=== PATIENT | female | born 1960 | race Caucasian/White ===

== ENCOUNTER 2017-05-28 07:33 | Day surgery (SDC) | payer OTHER ==
[~2017-05-28] VITALS: Ht 157.5 cm; Wt 99.8 kg
[~2017-05-28 07:33] MED LIST: BLUE TP; EMERGEN-C IMM1000 MG PO; GLUCOPHAGE XR,500 MG PO; LEVOXYL88 MCG PO; LIPITOR20 MG PO; MOTRIN400 MG PO
[2017-05-28 08:33] VITALS: BP 178/84
[2017-05-28 12:25] VITALS: BP 144/77
[2017-05-28 13:35] VITALS: BP 132/65
[2017-05-28 23:37] VITALS: BP 136/71
[2017-05-29 04:46] VITALS: BP 111/56
[2017-05-29 07:45] VITALS: BP 118/56
[2017-05-29] MEDS ORDERED: ASPIR-LOW81 MG PO (08:26)
[2017-05-29] MEDS ORDERED: ROXICODONE5 MG PO (11:35)
== END 2017-05-29 11:55 | disposition home or self-care (01) ==
LOC: SDC 07:33 → 2SOUTH 11:05 → 3EAST 11:05 → 2SOUTH 11:05 → ENRESERV 11:14 → SDC 12:19 → ENRESERV 13:46 → 3EAST 15:25
PROVIDERS: Orthopaedic Surgery
PROC: 0RRK0J7 Replacement of Left Shoulder Joint with Synthetic Substitute, Glenoid Surface, Open Approach (ICD-10-PCS; principal; 2017-05-28)
DX: M19.012 Primary osteoarthritis, left shoulder (principal); E11.9 Type 2 diabetes mellitus without complications; E03.9 Hypothyroidism, unspecified; K21.9 Gastro-esophageal reflux disease without esophagitis; Z79.84 Long term (current) use of oral hypoglycemic drugs; E78.5 Hyperlipidemia, unspecified
CPT/HCPCS: 82948; G0378; J0131; J0690; J1100; J1170; J1885; J2250; J2405; J2710; J2795; J3010; J7030; J7050; Q0175

== ENCOUNTER 2017-07-31 20:05 | Emergency (ER) | payer OTHER ==
[~2017-07-31] VITALS: Ht 157.5 cm; Wt 105.6 kg
[~2017-07-31 20:05] MED LIST changes: +ASPIR-LOW81 MG PO; +ROXICODONE5 MG PO
[2017-07-31 20:51] LABS: WHITE BLOOD COUNT 15.1 K/uL (4.1-10.2)
[2017-07-31 20:52] LABS: BASOPHIL (%) 0.5 % (0-1); BASOPHIL COUNT 0.1 K/uL (0-0.1); EOSINOPHIL (%) 1.7 % (0-5); EOSINOPHIL COUNT 0.3 K/uL (0-0.3); HEMATOCRIT 38.5 % (36.0-46.0); HEMOGLOBIN 12.7 G/DL (11.9-15.5); IMMATURE GRANULOCYTE (%) 0.9 % (0.0-0.7); LYMPHOCYTE (%) 11.8 % (15-42); LYMPHOCYTE COUNT 1.8 K/uL (1.0-2.8); MCH 28.9 PG (29.0-34.0); MCV 87.5 FL (83-99); MONOCYTE (%) 6.7 % (3-12); NEUTROPHIL (%) 78.4 % (45-76); NEUTROPHIL COUNT 11.8 K/uL (1.8-6.4); PLATELET COUNT 300 K/uL (156-360); RBC DIS.WIDTH-CV 12.4 % (11.8-14.6)
[2017-07-31 21:04] LABS: CHLORIDE 99 mEq/L (99-109); POTASSIUM 4.1 mEq/L (3.7-5.4); SODIUM 136 mEq/L (136-147)
[2017-07-31 21:05] LABS: GLUCOSE 110 mg/dL (70-99)
[2017-07-31 21:09] LABS: CREATININE 0.8 mg/dL (0.6-1.3); GFR ESTIMATE (CALCULATED) > 59 mL/min/
[2017-07-31 21:10] LABS: UREA NITROGEN (BUN) 8 mg/dL (9-23)
[2017-07-31 22:46] LABS: TROP-I INTERPRETATION NEGATIVE; TROPONIN-I < 0.01 ng/mL (0.0-0.30)
[2017-07-31] MEDS ORDERED: CLINDAMYCIN HC300 MG PO (23:33)
[2017-08-01 00:19] LABS: APPEARANCE CLEAR ((CLEAR)); BILIRUBIN NEGATIVE; BLOOD SMALL; COLOR YELLOW ((YELLOW)); GLUCOSE (STRIP) NEGATIVE; KETONES NEGATIVE; LEUKOCYTES NEGATIVE; NITRITE NEGATIVE; PROTEIN (STRIP) NEGATIVE; SPECIFIC GRAVITY 1.005 (1.000-1.030); UROBILINOGEN 0.2 MG/DL (0.2-1.0)
[2017-08-01 00:38] LABS: BACTERIA RARE /HPF; EPITHELIAL CELLS RARE /HPF; MUCUS TRACE /LPF; RED BLOOD CELLS 0-5 /HPF (0-5); UCUL ADDED? NO; WHITE BLOOD CELLS 0-5 /HPF (0-5)
[2017-08-01 00:54] VITALS: BP 166/74
== END 2017-08-01 00:57 | disposition home or self-care (01) ==
LOC: EME 20:05
DX: R60.0 Localized edema (principal); L03.116 Cellulitis of left lower limb; L03.115 Cellulitis of right lower limb; R91.1 Solitary pulmonary nodule; Z79.84 Long term (current) use of oral hypoglycemic drugs
CPT/HCPCS: 71046; 80048; 81003; 83605; 83880; 84484; 85025; 87040; 93005; 93970; 99281; 99285